=== PATIENT | female | born 1955 | race Caucasian/White ===

== ENCOUNTER 2020-03-22 07:01 | Day surgery (SDC) | payer MEDICARE, SELFPAY ==
[2020-03-18 12:41] VITALS: BMI 23.8
[2020-03-22 07:18] VITALS: BP 131/72; PULSE 62; RESP 18; TEMP 36.4; O2SAT 96
--- NOTE | 2020-03-22 07:29 | ANES.PREANE2 ---
Pre-Anesthetic Assessment Pre-Anesthetic Assessment: Height/Weight: Height 1.57 m Weight 58.967 kg Temp Pulse Resp BP Pulse Ox 97.6 F 62 18 131/72 96 03/22/20 07:18 03/22/20 07:18 03/22/20 07:18 03/22/20 07:18 03/22/20 07:18 Preop Diagnosis: screening Proposed Procedure: Operation Date: 03/22/20 08:30 Proposed Procedures p Colonoscopy 63894 Z12.11(Not Applicable) - Yahir Mesa MD Familial anesthetic complications: None Was Beta Donald taken within 24 hours: N/A Last intake: Intake Last Liquid Date 03/21/20 Last Liquid Time 20:00 Last Solid Date 03/20/20 Last Solid Time 18:00 Social: Social History: No alcohol and No tobacco Exam: Pre-Anes Outpt Exam: alert, oriented x 3, clear to auscultation bilaterally and regular rate & rhythm Airway: Cervical ROM: WNL MP: 1 Dentition: Full Pulmonary: Pulmonary: None reported CV/HEM: CV/HEM: None reported : : None reported Hepatic: Hepatic: None reported Musc/skel: Musc/skel: Lower Back Pain (5-6 bulging lumbar discs) Neuropsych: Neuropsych: Anxiety Anesthetic Plan: ASA status: 1 Anesthesia: MAC Risk of > 500 ml blood loss (7ml/kg in children): No Data Anesthesia Cardiac Studies: No Data to Display
[2020-03-22] MEDS: sodium chloride 0.9% 1,000 ML 30 ML IV (07:31)
--- NOTE | 2020-03-22 08:18 | P.HP_ITS ---
Same Day Surgery H&P Indication for Procedure/HPI DATE OF PROCEDURE: March 22, 2020 CHIEF COMPLAINT/INDICATIONFOR SURGICAL PROCEDURE: screening colonoscopy PREOP DIAGNOSIS: screening PLANNED PROCEDRUE: Operation Date: 03/22/20 08:30 Proposed Procedures p Colonoscopy 58580 Z12.11(Not Applicable) - Yahir Mesa MD Medications/Allergies* Home Medications Medication Instructions Recorded Confirmed Type alprazolam 0.25 mg tablet 0.25 mg PO BID PRN 03/04/20 03/22/20 History bupropion HCl 150 mg 24 hr tablet, 150 mg PO QAM 03/04/20 03/22/20 History extended release escitalopram oxalate 10 mg tablet 10 mg PO DAILY 03/04/20 03/22/20 History Allergies/Adverse Reactions Allergy/AdvReac Type Severity Reaction Status Date / Time codeine Allergy ADR/ALGY-Pa Verified 03/18/20 12:34 lpitations Ccqfcfa-Ltm-Gfg Reductase AdvReac ADR-Cramping Verified 03/18/20 12:34 Inhibitor of the Muscles Current Medications: Generic Name Dose Route Start Last Admin Trade Name Freq PRN Reason Stop Dose Admin Sodium Chloride 1,000 mls @ 30 mls/hr 03/22/20 07:15 03/22/20 07:31 Sodium Chloride 0.9% IV 03/23/20 07:14 30 mls/hr .Q24H KRISTOFER Administration Pertinent Exam Findings alert, oriented x 3 and regular rate & rhythm Recommendations Surgery/Procedure today Coding Level of Care Code Acute Science Faculty Member for Tali Rodriguez
[2020-03-22 08:35] VITALS: BP 94/60; PULSE 58; RESP 18; TEMP 36.2; O2SAT 98
--- NOTE | 2020-03-22 08:37 | ANE.PACU2 ---
Inpatient post-anesthesia follow up: Airway intact: Yes Vital signs: Temperature 97.1 F Pulse Rate 58 Respiratory Rate 18 Blood Pressure 94/60 Pulse Oximetry 98 Oxygen Delivery Me thod Nasal Cannula Oxygen Flow Rate 3.0 Fraction of Inspir ed Oxygen Hydration adequate: Yes Nausea and vomiting: No Pain level: 1 Mental status: Baseline
[2020-03-22 08:47] VITALS: BP 103/66; PULSE 58; RESP 18; O2SAT 98
== END 2020-03-22 08:55 | disposition home or self-care (01) ==
PROVIDERS: PCP Family Medicine; Visit Provider Surgery
PROC: 0DJD8ZZ Inspection of Lower Intestinal Tract, Via Natural or Artificial Opening Endoscopic (ICD-10-PCS; CPT 45378; principal; 2020-03-22 08:30)
DX: Z12.11 Encounter for screening for malignant neoplasm of colon (principal)
CPT/HCPCS: 12345; G0121; J2704; J7030

== ENCOUNTER 2021-11-24 09:47 | Emergency (ER) | payer MEDICARE, SELFPAY ==
[2021-11-24 10:12] VITALS: BP 128/70; PULSE 72; RESP 18; TEMP 37.1; O2SAT 96; BMI 23.3
--- NOTE | 2021-11-24 10:17 | XRR_ITS ---
PROCEDURE INFORMATION: Exam: XR Left Wrist Exam date and time: 11/24/2021 10:26 AM Age: 66 years old Clinical indication: Injury or trauma; Fall; Blunt trauma (contusions or hematomas); Wrist; Left; Injury date: 11/23/21 TECHNIQUE: Imaging protocol: XR Left wrist. Views: 3 or more views. COMPARISON: No relevant prior studies available. FINDINGS: Bones/joints: There is a comminuted displaced fracture in the distal metaphysis of the radius. This fracture shows transverse and longitudinal components and appears to be interarticular. Soft tissues: Unremarkable XR/XR wrist LT min 3V* [id number] IMPRESSION: 1. Comminuted interarticular fracture of the distal metaphysis of the radius. 2. Otherwise negative for additional bone abnormalities. A
--- NOTE | 2021-11-24 11:11 | W.ED.EXTPRO ---
HPI - Extremity Problem General: Chief complaint: Extremity Injury, Upper Stated complaint: Left Hand injury Time Seen by Provider: 11/24/21 10:05 History of Present Illness: Patient fell yesterday injuring left wrist. He has pain with movement. Associated symptoms: Deny chest pain, fever(s) or rash Review of Systems Const: Denies: fever(s), chills or body aches Eyes: Denies: eye discomfort ENMT: Denies: throat pain Card: Denies: chest pain Resp: Denies: dyspnea GI: Denies: abdominal pain, nausea or vomiting Musc: Reports: joint pain (Left wrist area) and joint swelling Skin/Breast: Denies: rash Neuro: Denies: headache(s) Psych: Denies: depression or suicidal ideation [facility] ED PFSH: Surgical History (Updated 03/22/20 @ 08:34 by Yahir Mesa MD) Status post colonoscopy (03/22/20) Normal, repeat in 10 years Physical Exam Const: COMMON NORMALS: no acute distress, patient oriented x3 and alert HENMT: COMMON NORMALS: normocephalic and external ears normal HEAD & SCALP: normocephalic EXTERNAL EAR: Yes external ears normal Eye: COMMON NORMALS: EOMs intact bilaterally Neck/C-Spine: COMMON NORMALS: no JVD Resp: COMMON NORMALS: normal respiratory effort and No use of accessory muscles Cardio: COMMON NORMALS: no JVD GI: INSPECTION: Yes normal to inspection Extremity: COMMON NORMALS: normal to inspection and full ROM LEFT UPPER EXTREMITY: Yes wrist (Tenderness throughout the wrist more on the radial side.) Left wrist: Yes inspection (Moderate swelling), Yes ROM (Decreased due to pain) and Yes neurovascular exam (Intact) Neuro: COMMON NORMALS: patient oriented x3 SENSORIUM/ORIENTATION: Yes alert Psych: COMMON NORMALS: mental status grossly normal Skin: COMMON NORMALS: no rashes or lesions noted GENERAL SKIN EXAM: no rashes or lesions noted Course Vital Signs: Vital signs: Vital Signs Temperature 98.8 F 11/24/21 10:12 Pulse Rate 72 11/24/21 10:12 Respiratory Rate 18 11/24/21 10:12 Blood Pressure 128/70 11/24/21 10:12 Pulse Oximetry 96 11/24/21 10:12 MDM - Extremity (Nontraumatic) Medical Decision Making Left commuted radial fracture distant discussed case with Dr. Marcus Lab Data Radiology Impressions Wrist X-Ray 11/24/21 10:17 IMPRESSION: 1. Comminuted interarticular fracture of the distal metaphysis of the radius. 2. Otherwise negative for additional bone abnormalities. A Discharge Plan Discharge Patient Disposition: Home Clinical Impression: Fracture of wrist Qualifiers: Encounter type: initial encounter Fracture type: closed Laterality: left Qualified Code(s): S62.102A - Fracture of unspecified carpal bone, left wrist, initial encounter for closed fracture Condition: Stable Prescriptions: No Action bupropion HCl [Wellbutrin XL] 150 mg tablet extended release 24 hr 150 mg PO QAM 0RF alprazolam 0.25 mg tablet 0.25 mg PO BID PRN (Reason: Anxiety) 0RF escitalopram oxalate [Lexapro] 10 mg tablet 10 mg PO DAILY 0RF Discharge Orders: Discharge ED (Routine); Ordered 11/24/21 Ordered By: Mack Sweet Referrals: Feng Restrepo MD [Primary Care Provider] - Discharge Diet: Usual diet Discharge Activity: Limit activity as instructed Patient Instructions: Wrist Fracture in Adults (ED) Activity Restrictions/Additional Instructions: Hospital contact with appointment for orthopedic clinic. Take your pain medication have at home. Can apply ice to area. Wear sling and splint until follow-up by Ortho. Coding Level of Care Code ED Counselling Psychologist for Tali Rodriguez Exam Comprehensive
--- NOTE | 2021-11-24 12:49 | DCPLANNER ---
Addendum entered by Tiff Rosa 11/30/21 16:36: Patient had a follow up appointment scheduled with ortho - patient did attend appointment. Addendum entered by Tiff Rosa 11/28/21 06:37: Patient has a follow up appointment scheduled for , November 30, 2021 at 10:30 with Stepan HUGGINS, at ortho. Clinic will call patient with appointment information. Original Note: manager in training had message to schedule a follow up appointment for patient with ortho. manager in training sent patients information to the front office staff at ortho. Patients information will be printed and reviewed. Clinic will call patient with appointment information.
== END 2021-11-24 11:48 | disposition home or self-care (01) ==
PROVIDERS: Emergency Provider Nurse Practitioner Family; PCP Family Medicine
DX: S52.572A Other intraarticular fracture of lower end of left radius, initial encounter for closed fracture (principal); W19.XXXA Unspecified fall, initial encounter
CPT/HCPCS: 29125; 73110; 99283

== ENCOUNTER 2021-11-27 09:19 | Emergency (ER) | payer MEDICARE, SELFPAY ==
[2021-11-27 09:27] VITALS: BP 134/67; PULSE 74; RESP 18; TEMP 36.3; O2SAT 95; BMI 23.3
--- NOTE | 2021-11-27 09:30 | W.ED.EXTPRO ---
HPI - Extremity Problem General: Chief complaint: Extremity Problem,Nontraumatic Stated complaint: Needs her ring cut off Time Seen by Provider: 11/27/21 09:29 Source: patient Mode of arrival: ambulatory Limitations: no limitations History of Present Illness: Patient is a nice 66-year-old female who presents to ED today with a complaint that her ring on her left ring finger is too tight. Patient was seen here at our facility on 11/24 following an injury to the extremity and diagnosed with a left radial fracture. She states the ring was not removed on that visit and over the past several days has become increasingly tight. She has not noticed any color or sensory changes to her digit. She states pain from her fracture is controlled. She has follow-up with orthopedics on 11/30 this week. MD Complaint: joint pain and other (ring tight) Onset (ago): day(s) Pain Consistency: constant Location: left and upper extremity Radiation: none Associated symptoms: Deny fever(s) Review of Systems Const: Denies: fever(s), chills, body aches, fatigue or malaise Musc: Reports: extremity pain (L 4th finger), extremity swelling (L 4th finger), joint pain (L wrist) and joint swelling (L wrist) [facility] ED PFSH: Surgical History Status post colonoscopy (03/22/20) Normal, repeat in 10 years Physical Exam Const: COMMON NORMALS: no acute distress, average body habitus, patient oriented x3, no limitations, healthy appearing, alert and well nourished Extremity: GENERAL: Yes normal exam except as noted LEFT UPPER EXTREMITY: Yes wrist and Yes hand & digits OTHER: pt has swelling and slight deformity to L distal wrist consistent with radial fracture; extremity NV intact; she has a ring present to her 4th digit that she complains is too tight; all digits are swollen expectedly from her fracture; 4th digit has normal sensory and cap refill-no color/temp changes appreciated Neuro: COMMON NORMALS: patient oriented x3, moves all extremities, no focal motor deficits and no sensory deficits noted SENSORIUM/ORIENTATION: Yes alert Procedures Foreign Body Removal Time Out Performed: no Site: left and hand (4th finger) Description of foreign body: other (ring) Sedation/Analgesia: none Technique: other (ring cutter) Confirmed by:: direct visualization Complications: none Post-procedure exam: awake, alert Neurovascular: normal distal pulse, normal capillary fill, distal light touch sensation intact, distal motor function normal and no signs of compartment syndrome Course Vital Signs: Vital signs: Vital Signs Temperature 97.3 F L 11/27/21 09:27 Pulse Rate 64 11/27/21 10:04 Respiratory Rate 16 11/27/21 10:04 Blood Pressure 129/70 11/27/21 10:04 Pulse Oximetry 97 11/27/21 10:04 MDM - Extremity (Nontraumatic) Medical Decision Making Patient here for removal of a L 4th finger ring that has become too tight following a radial fracture to same extremity several days ago. Finger itself has no evidence for ischemia/compromise at this time but ring was removed for patient comfort. Patient will be instructed to stay in her splint and follow up with orthopedics in 3 days as scheduled. Discharge Plan Discharge Patient Disposition: Home Clinical Impression: Tight ring on finger Condition: Stable Prescriptions: No Action bupropion HCl [Wellbutrin XL] 150 mg tablet extended release 24 hr 150 mg PO QAM 0RF alprazolam 0.25 mg tablet 0.25 mg PO BID PRN (Reason: Anxiety) 0RF escitalopram oxalate [Lexapro] 10 mg tablet 10 mg PO DAILY 0RF Discharge Orders: Discharge ED (Routine); Ordered 11/27/21 Ordered By: Renetta Zhang Referrals: Feng Restrepo MD [Primary Care Provider] - Coding Level of Care Code ED Chief Console Operator for Tali Rodriguez
[2021-11-27 10:04] VITALS: BP 129/70; PULSE 64; RESP 16; O2SAT 97
== END 2021-11-27 10:05 | disposition home or self-care (01) ==
PROVIDERS: Emergency Provider Physician Assistant; PCP Family Medicine
DX: M79.645 Pain in left finger(s) (principal); M79.89 Other specified soft tissue disorders; S52.91XD Unspecified fracture of right forearm, subsequent encounter for closed fracture with routine healing; X58.XXXD Exposure to other specified factors, subsequent encounter
CPT/HCPCS: 99282

== ENCOUNTER → 2021-11-30 10:33 | Outpatient (BNVA) | payer MEDICARE, SELFPAY | PROVIDERS: PCP Family Medicine; Referring Provider Nurse Practitioner Family; Visit Provider Physician Assistant | DX: S52.572A Other intraarticular fracture of lower end of left radius, initial encounter for closed fracture (principal); Y93.H1 Activity, digging, shoveling and raking | CPT/HCPCS: 73110; 99204; 99999 ==

== ENCOUNTER 2021-12-04 08:07 | Day surgery (SDC) | payer MEDICARE, SELFPAY ==
[2021-12-01 11:46] VITALS: BMI 23.3
[2021-12-04] VITALS (15 sets, daily range): BP systolic 109–175; BP diastolic 64–97; PULSE 38–67; RESP 14–18; TEMP 36.2–36.8; O2SAT 95–100
--- NOTE | 2021-12-04 | SCC_ITS ---
Procedure done: ORIF extra articualr distal radius fracture 7.6 seconds of fluoroscopic guidance, for a cumulative dose of 0.13 mGy, was provided to Dr. Browne by the radiology department. C-arm images of the LEFT wrist were saved for the patient's permanent record. [facility] CENTERAvinash
--- NOTE | 2021-12-04 | XR_ITS ---
WS: [id number] XR wrist LT 2V [id number] REASON FOR EXAM: left distal radius fracture FINDINGS: Plate and screw fixation of distal complex radial fracture. Surgical appliances and bony fragments are in proper position and alignment. Mildly displaced ulnar s tyloid fracture also noted. XR/XR wrist LT 2V [id number] IMPRESSION: Internal fixation of distal left radial fracture as above.
[2021-12-04] MEDS: sodium chloride 0.9% 1,000 ML 30 ML IV (08:55)
--- NOTE | 2021-12-04 08:56 | W.PM.OPSUD ---
Surgery/Procedure H&P Update DATE OF PROCEDURE: December 04, 2021 DATE H&P PERFORMED: 11/30/21 H&P UPDATE INFORMATION: I have reviewed H&P completed within last 30 days, I have examined patient prior to procedure and No changes to prior documentation PREOP DIAGNOSIS: Left Distal Radius Fracture PLANNED PROCEDURE: Operation Date: 12/04/21 09:35 Proposed Procedures p ORIF Distal Radius 07200/S52.502A(Left) - Walter Browne DO
[2021-12-04] MEDS: lidocaine 2% INJ 20 mL INJECTION (09:44)
--- NOTE | 2021-12-04 10:16 | PM.OP ---
Operative Report Date of procedure: December 04, 2021 Pre-op diagnosis: Preop Diagnosis Left Distal Radius Fracture extra articular Post-op diagnosis: same Procedure done: ORIF extra articualr distal radius fracture Surgeon: Walter Browne Personal Lines Insurance Agent: Stepan Peterson Personal Lines Insurance Agent: The surgical instrument technician, Stepan Peterson, SELENE was needed for his expertise with fracture care. He was important and necessary throughout the procedure to complete in a safe and timely manner. He assisted with patient positioning prepping and draping tissue retraction suctioning of the operative field protection of the critical structures and tissue closure Estimated blood loss (mL): 5 Procedure: Patient was brought to the operative suite after undergoing anesthesia all areas impingement well-padded. Patient was prepped and draped in normal sterile fashion. Tourniquet was applied. Skin incision made over the volar wrist. The FCR and radial artery were identified the plantar quadratus and soft tissues were retracted medially and laterally. The fracture was identified fracture was reduced. And a Karey distal radius plate was placed. 3 screws were placed distal to fracture 2 screws placed proximally. AP lateral fluoroscopy ensured the fracture and hardware improved position. Wounds were irrigated and closed with Vicryl and Monocryl suture. Sterile dressings applied patient transferred to the PACU in stable condition.
--- NOTE | 2021-12-04 10:21 | SUR.PHASEI ---
1013 PT TO PACU 5 SLEEPY WITH ORAL AIRWAY PARTIALLY IN PLACE, GOOD AIRMOVEMENT PT DOES NOT AWAKE TO TOUCH, VSS MONITOR SB IN 40'S WITH NO ECTOPY NOTED SATS 100% ON RA LT LOWER ARM IN SOFT DRESSING WITH TAMEKA D/I DISTAL FINGERS PINK WARM TO TOUCH, CAP REFILL LESS THEN 3 SECONDS BILAT SCDS ON BP TO LT LEG. IV TO RT WRIST #20 WITH NS 500ML UP AT KVO RATE PER GRAVITY, PT ID BRACELET TO RT WRIST, PT ID'D WITH 2 IDENTIFIERS, WARM BLANKETS TO PT. 1025 PT AWAKES TO VOICE, ORAL AIRWAY OUT , PT SHAKES HEAD NO TO PAIN, VSS HR REMAIN 40-43 SB. NO ECTOPY,
--- NOTE | 2021-12-04 10:33 | SUR.PHASEI ---
PT MORE ALERT HOB AT 40 DEGREES, PT TAKING OCC ICE CHIP, PT ENCOURAGED TO COUGH AND DEEP BREATH, PT DENIES NAUSEA OR ANY CHEST DISCOMFORT, DENIES SYNCOPY, DR SERNA AWARE OF ABOVE HR VARIENCE.
--- NOTE | 2021-12-04 10:35 | ANES.PREANE2 ---
Pre-Anesthetic Assessment Height/Weight: Height 1.57 m Weight 58.06 kg Temp Pulse Resp BP Pulse Ox 97.1 F L 43 L 18 134/77 97 12/04/21 10:14 12/04/21 10:25 12/04/21 10:25 12/04/21 10:25 12/04/21 10:25 Preop Diagnosis: Left Distal Radius Fracture Operation Date: 12/04/21 09:35 Proposed Procedures p ORIF Distal Radius 02440/S52.502A(Left) - Walter Browne DO Familial anesthetic complications: None Was Beta Donald taken within 24 hours: N/A Was Clonidine taken within 24 hours: N/A Last intake: Intake Last Liquid Date 12/03/21 Last Liquid Time 20:00 Last Solid Date 12/03/21 Last Solid Time 20:00 Social No alcohol and No tobacco Exam alert, oriented x 3, clear to auscultation bilaterally and regular rate & rhythm Airway Submandibular: within normal limits Cervical ROM: within normal limits Mallampati: Class II Dentition: full History/ROS No significant history except as noted Neuropsych Anxiety Anesthetic Plan ASA status: 2 Anesthesia: General Medications/Allergies Home Medications Medication Instructions Recorded Confirmed Last Taken Type alprazolam 0.25 mg tablet 0.25 mg PO BID PRN 03/04/20 12/04/21 Unknown History escitalopram oxalate 10 mg tablet 10 mg PO DAILY 03/04/20 12/04/21 12/03/21 History (Lexapro) hydrocodone 5 mg-acetaminophen 325 1 - 2 tab PO .Q4-6H #40 tab 12/04/21 Unknown Rx mg tablet Allergies Allergy/AdvReac Type Severity Reaction Status Date / Time codeine Allergy ADR/ALGY-Pa Verified 12/04/21 08:25 lpitations Ptbuxif-JLD-SkI Reductase AdvReac ADR-Cramping Verified 12/04/21 08:25 Inhibitor of the [Jxsucup-Xtn-Erx Reductase Muscles Inhibitor] Current Medications Generic Name Dose Route Start Last Admin Trade Name Freq PRN Reason Stop Dose Admin Sodium Chloride 1,000 mls @ 30 mls/hr 12/04/21 08:15 12/04/21 08:55 Sodium Chloride 0.9% IV 12/05/21 08:14 30 mls/hr .Q24H KRISTOFER Administration PFSH Anesthesia Surgical History Status post colonoscopy (03/22/20) Normal, repeat in 10 years Social History Smoking and tobacco status: never smoked Data Anesthesia Cardiac Studies: No Data to Display
[2021-12-04] MEDS: fentaNYL 50 mcg/mL INJ 2mL IVP (10:41)
--- NOTE | 2021-12-04 10:47 | SUR.PHASEI ---
1041 PT MORE AWAKE VERBALIZED APPROPRIATELY, PT MOANING AND C/O OF PAIN OF 7 HR REMAINS 37-42 SB, SEE PLASCENCIA MED GIVEN 1050 HR NOW IN UPPER 40'S TO 50'S SB, SATS 99% ON 3LNC , PT STATS PAIN IS BETTER, PT SLEEPS IF NOT DISTURBED.
[2021-12-04] MEDS: HYDROmorphone 1 mg/mL INJ 1 mL 0.5 MG IVP (11:24)
[2021-12-04] MEDS: HYDROcodone-acetaminophen 5-325 mg Tablet 2 TAB PO (11:53)
--- NOTE | 2021-12-04 13:36 | ANE.PACU2 ---
Inpatient post-anesthesia follow up: Airway intact: Yes Vital signs: Temperature 97.2 F Pulse Rate 66 Respiratory Rate 16 Blood Pressure 119/97 Pulse Oximetry 97 Oxygen Delivery Me thod Room Air Oxygen Flow Rate 3 Fraction of Inspir ed Oxygen Hydration adequate: Yes Nausea and vomiting: No Pain level: 3 Mental status: Baseline
== END 2021-12-04 12:18 | disposition home or self-care (01) ==
PROVIDERS: PCP Family Medicine; Visit Provider Orthopaedic Surgery
PROC: (CPT 25607; principal; 2021-12-04 09:25)
DX: S52.552A Other extraarticular fracture of lower end of left radius, initial encounter for closed fracture (principal); X58.XXXA Exposure to other specified factors, initial encounter
CPT/HCPCS: 25607; 73100; 76000; C1713; J0690; J1100; J1170; J1200; J2370; J2405; J2704; J3010; J7030

== ENCOUNTER → 2021-12-19 10:41 | Outpatient (BNVA) | payer MEDICARE, SELFPAY | PROVIDERS: PCP Family Medicine; Visit Provider Physician Assistant | DX: S52.572D Other intraarticular fracture of lower end of left radius, subsequent encounter for closed fracture with routine healing (principal); X58.XXXD Exposure to other specified factors, subsequent encounter | CPT/HCPCS: 73110 ==

== ENCOUNTER 2021-12-19 14:02 | Outpatient (CLI) | payer MEDICARE, SELFPAY | END 2021-12-19 14:03 | disposition home or self-care (01) | LOC: SPT 14:03 | PROVIDERS: PCP Family Medicine; Visit Provider Physician Assistant | DX: Z46.89 Encounter for fitting and adjustment of other specified devices (principal); S52.572D Other intraarticular fracture of lower end of left radius, subsequent encounter for closed fracture with routine healing; X58.XXXD Exposure to other specified factors, subsequent encounter; Z98.890 Other specified postprocedural states | CPT/HCPCS: 97760; L3908 ==

== ENCOUNTER 2021-12-27 06:00 | Outpatient (RCR) | payer MEDICARE, SELFPAY | END 2022-01-25 23:59 | disposition home or self-care (01) | LOC: SOT 06:00 | PROVIDERS: PCP Family Medicine; Referring Provider Physician Assistant; Visit Provider Physician Assistant | DX: S52.502D Unspecified fracture of the lower end of left radius, subsequent encounter for closed fracture with routine healing (principal); X58.XXXD Exposure to other specified factors, subsequent encounter | CPT/HCPCS: 97018; 97022; 97110; 97140; 97166; 97760 ==

== ENCOUNTER → 2022-01-02 10:36 | Outpatient (BNVA) | payer MEDICARE, SELFPAY | PROVIDERS: PCP Family Medicine; Visit Provider Physician Assistant | DX: S52.572D Other intraarticular fracture of lower end of left radius, subsequent encounter for closed fracture with routine healing (principal); X58.XXXD Exposure to other specified factors, subsequent encounter | CPT/HCPCS: 73110; 99024 ==

== ENCOUNTER → 2022-01-16 11:08 | Outpatient (BNVA) | payer MEDICARE, SELFPAY | PROVIDERS: PCP Family Medicine; Visit Provider Physician Assistant | DX: S52.572D Other intraarticular fracture of lower end of left radius, subsequent encounter for closed fracture with routine healing (principal); X58.XXXD Exposure to other specified factors, subsequent encounter | CPT/HCPCS: 73110; 99024 ==

== ENCOUNTER 2022-01-26 06:00 | Outpatient (RCR) | payer MEDICARE, SELFPAY | END 2022-02-25 23:59 | disposition home or self-care (01) | LOC: SOT 06:00 | PROVIDERS: PCP Family Medicine; Referring Provider Physician Assistant; Visit Provider Physician Assistant | DX: S52.502D Unspecified fracture of the lower end of left radius, subsequent encounter for closed fracture with routine healing (principal) | CPT/HCPCS: 97018; 97110; 97140 ==

== ENCOUNTER → 2022-02-20 09:17 | Outpatient (BNVA) | payer MEDICARE, SELFPAY | PROVIDERS: PCP Family Medicine; Visit Provider Physician Assistant | DX: S52.502D Unspecified fracture of the lower end of left radius, subsequent encounter for closed fracture with routine healing (principal); X58.XXXD Exposure to other specified factors, subsequent encounter | CPT/HCPCS: 73100; 99024 ==

== ENCOUNTER 2022-05-17 09:18 | Outpatient (CLI) | payer MEDICARE, SELFPAY ==
--- NOTE | 2022-05-17 09:44 | MM_ITS ---
WS: [id number] Bilateral screening 3D tomosynthesis digital mammogram, 05/17/2022 Clinical Data: SCREEN Comparison: 05/29/2019, 11/01/2017, 04/10/2016, 09/21/2015, 09/06/2015, 07/02/2014, 01/23/2013, 05/19/2010, . Findings: The breast parenchymal pattern shows heterogeneous density. No spiculated masses or clustered calcifi cations are seen. There are no secondary signs of carcinoma. MM/[place] [id number] Impression: 1. Negative bilateral mammogram unchanged. 2. Recommend annual screening mammograms. BIRADS: 1-Negative FOLLOW UP: 1 Year Follow-up The CAD metal checker was used.
== END 2022-05-17 09:19 | disposition home or self-care (01) ==
LOC: RAD 09:20
PROVIDERS: PCP Family Medicine; Visit Provider Family Medicine
DX: Z12.31 Encounter for screening mammogram for malignant neoplasm of breast (principal)
CPT/HCPCS: 77063; 77067

== ENCOUNTER → 2023-10-15 09:57 | Outpatient (BNVA) | payer MEDICARE, SELFPAY | PROVIDERS: PCP Family Medicine; Visit Provider Family Medicine | DX: S52.572D Other intraarticular fracture of lower end of left radius, subsequent encounter for closed fracture with routine healing (principal); F41.9 Anxiety disorder, unspecified; R53.83 Other fatigue; E11.9 Type 2 diabetes mellitus without complications; X58.XXXD Exposure to other specified factors, subsequent encounter | CPT/HCPCS: 80053; 80061; 82306; 82607; 83735; 84443; 85025; 85651; 86140 ==

== ENCOUNTER → 2025-04-01 15:33 | Outpatient (BNVA) | payer MEDICARE, SELFPAY | PROVIDERS: PCP Family Medicine; Visit Provider Family Medicine | DX: F41.9 Anxiety disorder, unspecified (principal) | CPT/HCPCS: 80053; 82533; 83690; 84443; 85025; 86140 ==

== ENCOUNTER → 2025-05-06 08:38 | Outpatient (BNVA) | payer MEDICARE, SELFPAY | PROVIDERS: PCP Family Medicine; Visit Provider Family Medicine | DX: F41.9 Anxiety disorder, unspecified (principal); R74.8 Abnormal levels of other serum enzymes | CPT/HCPCS: 80061; 83036; 83690; 84439; 84443; 84481 ==

== ENCOUNTER 2025-05-18 07:07 | Outpatient (CLI) | payer MEDICARE, SELFPAY ==
--- NOTE | 2025-05-18 08:00 | CTR_ITS ---
PROCEDURE INFORMATION: Exam: CT Abdomen And Pelvis With Contrast Exam date and time: 05/18/2025 8:47 AM Age: 70 years old Clinical indication: Abdominal pain; Localized; Prior surgery; Surgery date: 6+ months; Surgery type: Hyst; Upper abdomen pain with nausea in the am x 3 motnhs; Additional info: Abd pain TECHNIQUE: Imaging protocol: Computed tomography of the abdomen and pelvis with contrast. Radiation optimization: All CT scans at this facility use at least one of these dose optimization techniques: automated exposure control; mA and/or kV adjustment per patient size (includes targeted exams where dose is matched to clinical indication); or iterative reconstruction. Contrast material: OMNI 350; Contrast volume: 100 ml; Contrast route: INTRAVENOUS (IV); COMPARISON: No relevant prior studies available. RADIATION DOSE METRICS: Total DLP (mGy-cm): 230.48 FINDINGS: Lungs: A 1.8 cm subpleural bleb in the posterior right lower lobe. The lung bases are clear. Liver: A 5 mm hypodensity in the right hepatic lobes, too small to characterize though statistically a benign cyst or hemangioma. Focal hepatic steatosis along the falciform ligament. Gallbladder and biliary ducts: No calcified gallstones. No biliary ductal dilation. Pancreas: Unremarkable pancreas. Spleen: A 7 mm hypodensity in the spleen, indeterminate though statistically benign. Adrenal glands: Unremarkable adrenal glands. Kidneys and ureters: Symmetrically enhanced kidneys. No hydronephrosis. No urolithiasis. Bilateral subcentimeter presumed cysts. Stomach and bowel: Unremarkable stomach. No dilated or inflamed bowel. Moderate colonic and large rectal stool volume. Appendix: Normal appendix. Intraperitoneal space: No free air or free fluid. Vasculature: Abdominal aorta is normal in course and caliber. Lymph nodes: No enlarged lymph nodes. Urinary bladder: Unremarkable urinary bladder. Reproductive: Surgically absent uterus. A 2.2 cm left adnexal cyst. Bones/joints: No acute osseous abnormality. Multilevel chronic degenerative changes of the spine. Soft tissues: Unremarkable soft tissues. CT/CT abdomen pelvis w con* [id number] IMPRESSION: No acute finding. COMMENTS: Consistent with the [employer]'s Incidental Findings Committee white paper (J Am Lisa Radiol 2018): Any incidental renal lesion less than 1 cm or classified as too small to characterize, or any incidental cystic renal lesion characterized as simple-appearing, is likely benign. No follow-up imaging is recommended for these lesions per consensus recommendations based on imaging criteria.
[2025-05-18] MEDS: iohexol 350 mg/mL 500 mL Btl (per mL) PO (08:36)
[2025-05-18] MEDS: iohexol 350 mg/mL 500 mL Btl (per mL) IV (08:55)
== END 2025-05-18 07:08 | disposition home or self-care (01) ==
PROVIDERS: PCP Family Medicine; Visit Provider Family Medicine
DX: R74.8 Abnormal levels of other serum enzymes (principal); J43.0 Unilateral pulmonary emphysema [MacLeod's syndrome]; K76.89 Other specified diseases of liver; K76.0 Fatty (change of) liver, not elsewhere classified; D73.9 Disease of spleen, unspecified; N28.1 Cyst of kidney, acquired; N28.89 Other specified disorders of kidney and ureter; Z90.710 Acquired absence of both cervix and uterus; R93.89 Abnormal findings on diagnostic imaging of other specified body structures; M47.899 Other spondylosis, site unspecified
CPT/HCPCS: 74177